=== PATIENT | male | born 1980 | race Caucasian/White ===

== ENCOUNTER 2018-03-07 17:45 | Emergency (ER) | payer MEDICARE ==
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
--- NOTE | 2018-03-07 18:39 | RAD ---
HISTORY: Next COMPARISON: No prior. FINDINGS: LUNGS: No active pulmonary disease. PLEURA: No significant pleural effusion identified, no pneumothorax apparent. CARDIOVASCULAR: No radiographic findings to suggest acute or significant cardiovascular disease. OSSEOUS STRUCTURES: No significant abnormalities. VISUALIZED UPPER ABDOMEN: Normal. OTHER FINDINGS: None. IMPRESSION: No active disease. Limitations of the current examination: Poor inspiratory effort.
[2018-03-07] MEDS ORDERED: Sodium Chloride 0.9% 1,000 ML IV STA ×2 (18:47→20:19)
[2018-03-07 19:03] LABS: BASO % 0.2 % (0.0-2.0); EOS # 0.1 K/uL (0.0-0.7); EOS % 0.3 % (0.0-4.0); HEMOGLOBIN 16.3 g/dL (12.0-18.0); LYMPH # 1.6 K/uL (1.0-4.3); LYMPH % 6.8 % (20.0-40.0); MEAN CELL VOLUME 93.4 fl (80.0-94.0); MEAN CORPUSCULAR HEMOGLOBIN 31.3 pg (27.0-31.0); MEAN CORPUSCULAR HGB CONC 33.5 g/dL (33.0-37.0); MEAN PLATELET VOLUME 8.2 fl (7.2-11.7); MONO % 4.4 % (0.0-10.0); NEUT # 21.1 K/uL (1.8-7.0); NEUT % 88.3 % (50.0-75.0); NRBC % 0.1 % (0.0-0.0); PLATELET COUNT 280 K/uL (130-400); RBC 5.19 Mil/uL (4.40-5.90); RED CELL DISTRIBUTION WIDTH 13.4 % (11.5-14.5); WHITE BLOOD COUNT 23.9 K/uL (4.8-10.8)
[2018-03-07 19:19] LABS: ALB/GLOB RATIO 1.2 (1.0-2.1); ALBUMIN 4.8 g/dL (3.5-5.0); ALT/SGPT 52 U/L (21-72); AST/SGOT 57 U/L (17-59); BLOOD UREA NITROGEN 15 mg/dl (9-20); CALCIUM 9.9 mg/dL (8.4-10.2); GFR AFRICAN-AMERICAN > 60; GFR NON-AFRICAN AMERICAN > 60
[2018-03-07 19:43] LABS: SQUAMOUS EPITHIAL < 1 /hpf (0-5); URINE BILIRUBIN NEGATIVE (NEGATIVE); URINE BLOOD SMALL (NEGATIVE); URINE CLARITY SLIGHTY-CLOUDY (Clear); URINE COLOR YELLOW (YELLOW); URINE GLUCOSE (UA) NEG (Normal); URINE HYALINE CAST 0-2 /hpf (0-2); URINE LEUKOCYTE ESTERASE NEG Leu/uL (Negative); URINE PROTEIN 100 mg/dL (NEGATIVE); URINE UROBILINOGEN 0.2-1.0 mg/dL (0.2-1.0)
[2018-03-07 19:53] LABS: PHENCYCLIDINE, UR NEGATIVE (NEGATIVE)
[2018-03-07 19:58] LABS: BARBITURATES, UR NEGATIVE (NEGATIVE); BENZODIAZEPINES, UR NEGATIVE (NEGATIVE); OPIATES, UR NEGATIVE (NEGATIVE)
[2018-03-07] MEDS ORDERED: Tdap Vaccine 0.5 ml Vial (10-64 yrs) IM ONE ×2 (20:00→20:52)
[2018-03-07 20:09] LABS: EOSINOPHIL 1 % (0-7); LYMPHOCYTE 5 % (20-50); MONOCYTE 5 % (0-10); NEUTROPHIL 86 % (42-75); PLATELET ESTIMATE NORMAL (NORMAL); REACTIVE LYMPHOCYTES 3 % (0-0); TOTAL CELLS COUNTED 100
[2018-03-07 20:18] LABS: VENOUS BLOOD GAS BASE EXCESS -1.5 mmol/L (0.0-2.0); VENOUS BLOOD GAS PCO2 41 mmHg (40-60); VENOUS BLOOD GAS PO2 79 mm/Hg (30-55); VENOUS BLOOD PH 7.37 (7.32-7.43)
--- NOTE | 2018-03-07 20:47 | ED PDOC ---
- Laboratory Results Result Diagrams: 03/07/18 22:50 03/07/18 18:58 - ECG O2 Sat by Pulse Oximetry: 100 <Tiera Mcmahon - Last Filed: 03/08/18 05:25> - Laboratory Results Result Diagrams: 03/07/18 22:50 03/07/18 18:58 <Hosea Shields - Last Filed: 03/08/18 06:20> - Progress ED Course And Treament: Case endorsed to residential mortgage underwriter from [employer] pending labs/clearance for [facility] 20:30 Lactate 3.2 on VBG; will hydrate and repeat WBC and lactate in 2 hours 21:[address] head ordered EXAM: CT Head Without Intravenous Contrast EXAM DATE/TIME: 03/07/2018 9:08 PM CLINICAL HISTORY: 37 years old, male; Signs and symptoms; Altered mental status/memory loss; Additional info: AMS TECHNIQUE: Axial computed tomography images of the head/brain without intravenous contrast. All CT scans at this facility use one or more dose reduction techniques, viz.: automated exposure control; ma/kV adjustment per patient size (including targeted exams where dose is matched to indication; i.e. head); or iterative reconstruction technique. COMPARISON: No relevant prior studies available. FINDINGS: Brain: No intracranial hemorrhage. No mass. No definite edema. Ventricles: No hydrocephalus. Bones/joints: No acute fracture. Sinuses: No acute sinusitis. Mastoid air cells: No mastoid effusion. Orbits: Unremarkable as visualized. Soft tissues: Unremarkable. IMPRESSION: No definite acute intracranial abnormality. 22:30 Patient awake, looking around; refusing to answer questions 23:15 Repeat WBC 13.8, repeat Lactic acid 0.9 23:30 Patient medically stable for psychiatric screening 03/08/18 1:00 Patient awake, resting comfortably in stretcher; no distress 2:30 Patient awake, resting comfortably in stretcher; no distress 4:00 Patient awake, resting comfortably in stretcher; no distress 5:30 Patient awake, resting comfortably in stretcher; no distress (Tiera Mcmahon) Medical Decision Making <Tiera Mcmahon - Last Filed: 03/08/18 05:25> <Hosea Shields - Last Filed: 03/08/18 06:20> Medical Decision Makin Patient resting comfortably, pending [facility] screening. Will endorse to day team, Dr. Gallagher. (Hosea Shields) Disposition - POA Present On Arrival: None - Disposition Disposition: Transfer of Care Disposition Time: 06:00 Patient Signed Over To: Hosea Shields Handoff Comments: pending [facility] screening <Tiera Mcmahon - Last Filed: 03/08/18 05:25> - POA Present On Arrival: None - Disposition Disposition: Transfer of Care Disposition Time: 07:00 Patient Signed Over To: Deion Gallagher III <Hosea Shields - Last Filed: 03/08/18 06:20> - Clinical Impression Clinical Impression: Encounter for psychiatric assessment, Schizophrenia - Disposition Condition: GUARDED Forms: [employer] (Slovak)
[2018-03-07 23:09] LABS: MEAN CELL VOLUME 92.8 fl (80.0-94.0); MEAN CORPUSCULAR HEMOGLOBIN 31.5 pg (27.0-31.0); MEAN CORPUSCULAR HGB CONC 33.9 g/dL (33.0-37.0); RBC 4.76 Mil/uL (4.40-5.90); RED CELL DISTRIBUTION WIDTH 13.1 % (11.5-14.5); WHITE BLOOD COUNT 13.8 K/uL (4.8-10.8)
--- NOTE | 2018-03-08 07:18 | ED PDOC ---
- Laboratory Results Result Diagrams: 03/07/18 22:50 03/07/18 18:58 - ECG O2 Sat by Pulse Oximetry: 98 Medical Decision Making Medical Decision Making: received 7am pending [facility] [place] [place] bed availability. labs reviewed, WBC improved and lactate cleared Disposition - Clinical Impression Clinical Impression: Encounter for psychiatric assessment, Schizophrenia - POA Present On Arrival: None - Disposition Disposition: Other Institution Disposition Time: 15:30 Condition: GUARDED Forms: [employer] (South African)
--- NOTE | 2018-03-08 09:22 | CARD ---
APPROVED REPORT EKG Measurement Heart [id number] <Conclusion> Sinus tachycardia Borderline ECG
--- NOTE | 2018-03-08 09:25 | CARD ---
APPROVED REPORT EKG Measurement Heart [id number] MA [id number] <Conclusion> Sinus tachycardia Otherwise normal ECG
--- NOTE | 2018-03-08 10:07 | CT ---
PROCEDURE: CT HEAD WITHOUT CONTRAST. HISTORY: AMS COMPARISON: None available. TECHNIQUE: Axial computed tomography images were obtained through the head/brain without intravenous contrast. Radiation dose: Total exam DLP = 870 seconds mGy-cm. This CT exam was performed using one or more of the following dose reduction techniques: Automated exposure control, adjustment of the mA and/or kV according to patient size, and/or use of iterative reconstruction technique. FINDINGS: HEMORRHAGE: No intracranial hemorrhage. BRAIN: No mass effect or edema. No atrophy or chronic microvascular ischemic changes. VENTRICLES: Unremarkable. No hydrocephalus. CALVARIUM: Unremarkable. PARANASAL SINUSES: Unremarkable as visualized. No significant inflammatory changes. MASTOID AIR CELLS: Unremarkable as visualized. No inflammatory changes. OTHER FINDINGS: None. IMPRESSION: Normal CT of the Head. Concordant results (preliminary interpretation) provided by [facility].
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
[2018-03-08 17:34] VITALS: BP 125/74; PULSE 104; RESP 18; TEMP 99
[2018-03-10 15:02] VITALS: O2SAT 98
== END 2018-03-08 17:41 | disposition short-term general hospital (02) ==
LOC: H.ER 17:45 → EDBD 17:45 → H.ER 03-08 17:41
DX: F25.9 Schizoaffective disorder, unspecified (principal); Z00.8 Encounter for other general examination; Z02.89 Encounter for other administrative examinations; Z86.59 Personal history of other mental and behavioral disorders
CPT/HCPCS: 70450; 71045; 80053; 81003; 82803; 83605; 84484; 85025; 85027; 87040; 87086; 90471; 90715; 93005; 96360; 99285; G0480; J7030